=== PATIENT | male | born 1975 | race Caucasian/White ===

== ENCOUNTER 2020-05-03 14:45 | Emergency (ER) | payer SELFPAY ==
[~2020-05-03] VITALS: Ht 167.6 cm; Wt 71.5 kg
[2020-05-03 15:01] VITALS: BP 142/98
== END 2020-05-03 15:23 | disposition home or self-care (01) ==
LOC: ER 15:12
DX: Z53.21 Procedure and treatment not carried out due to patient leaving prior to being seen by health care provider (principal)

== ENCOUNTER 2021-11-16 18:27 | Emergency (ER) | payer MEDICAID ==
[~2021-11-16] VITALS: Ht 165.1 cm; Wt 70.0 kg
[2021-11-16 19:51] LABS: HEMOGLOBIN. 12.9 g/dL (14.0-18.0); MEAN CORPUSCULAR HEMOGLOBIN 29.9 pg (28.0-32.0); MEAN CORPUSCULAR VOLUME 87.8 fL (80.0-94.0); MEAN PLATELET VOLUME 7.4 fl (7.4-10.4); PLATELET 88 x1000/uL (130-400); RED BLOOD CELL COUNT 4.33 mill/uL (4.7-6.1); RED CELL DISTRIBUTION WIDTH 14.6 % (11.6-14.6)
[2021-11-16 19:53] LABS: CHLORIDE 105 mEq/L (98-107)
[2021-11-16 20:04] LABS: ETHANOL BLOOD 192 mg/dL
[2021-11-16 20:18] LABS: PLATELET ESTIMATE DECREASED
[2021-11-16] MEDS ORDERED: SODIUM CHLORIDE 0.9% 1,000 ML IV ONE (20:30)
[2021-11-16] MEDS ORDERED: MIDAZOLAM HCL 2 MG/2 ML VIAL IV ONE (20:30)
[2021-11-16] MEDS ORDERED: IOHEXOL-350 100 ML BOTTLE ONE (23:31)
[2021-11-17] MEDS ORDERED: KETOROLAC 15MG/ML VIAL IV ONE
[2021-11-17 00:17] LABS: *AMPHETAMINES SCREEN URINE NEGATIVE (NEGATIVE); *BARBITURATES SCREEN URINE NEGATIVE (NEGATIVE); *BENZODIAZEPINES SCREEN URINE PRESUMTIVE POSITIVE (NEGATIVE); *COCAINE SCREEN URINE NEGATIVE (NEGATIVE); CANNABINOID URINE SCREEN NEGATIVE (NEGATIVE); METHADONE URINE SCREEN NEGATIVE (NEGATIVE); OPIATES URINE SCREEN NEGATIVE (NEGATIVE); PHENCYCLIDINE URINE SCREEN NEGATIVE (NEGATIVE)
[2021-11-17 06:00] VITALS: BP 113/76
== END 2021-11-17 06:09 | disposition home or self-care (01) ==
LOC: ER 18:27
DX: F15.129 Other stimulant abuse with intoxication, unspecified (principal); R07.89 Other chest pain; R00.0 Tachycardia, unspecified
CPT/HCPCS: 36415; 71045; 71275; 80053; 80305; 80320; 83880; 84484; 85025; 85379; 96374; 96375; 99285; J1885; J2250; J7030; Q9967; G0480